=== PATIENT | female | born 1990 | race African-American/Black ===

== ENCOUNTER 2023-11-23 10:12 | Emergency (ER) | payer MEDICAID ==
[~2023-11-23] VITALS: Ht 170.2 cm; Wt 57.0 kg
[2023-11-23 10:21] VITALS: O2SAT 99
[2023-11-23] MEDS ORDERED: POLY17PO3 MT (11:54)
[2023-11-23] MEDS ORDERED: DOCU100T MT (11:54)
[2023-11-23 12:34] VITALS: BP 112/66; PULSE 66; RESP 20; TEMP 98.1
== END 2023-11-23 12:41 | disposition home or self-care (01) ==
LOC: ER 10:41
DX: K59.00 Constipation, unspecified (principal); Z98.890 Other specified postprocedural states
CPT/HCPCS: 74018; 81025; 99283

== ENCOUNTER 2024-01-07 09:41 | Emergency (ER) | payer MEDICAID ==
[~2024-01-07] VITALS: Ht 170.2 cm; Wt 56.7 kg
[~2024-01-07 09:41] MED LIST: DOCU100T MT; POLY17PO3 MT
[2024-01-07 09:53] VITALS: BP 108/71; PULSE 62; RESP 16; TEMP 98.4; O2SAT 100
[2024-01-07] MEDS ORDERED: P50 MT (10:40)
== END 2024-01-07 10:58 | disposition home or self-care (01) ==
LOC: ER 09:50
DX: R21 Rash and other nonspecific skin eruption (principal); J45.909 Unspecified asthma, uncomplicated; Z88.0 Allergy status to penicillin; Z98.890 Other specified postprocedural states
CPT/HCPCS: 99283

== ENCOUNTER 2024-03-18 16:03 | Emergency (ER) | payer MEDICAID ==
[~2024-03-18] VITALS: Ht 170.2 cm; Wt 55.0 kg
[~2024-03-18 16:03] MED LIST changes: +P50 MT
[2024-03-18 16:14] VITALS: O2SAT 100
[2024-03-18 17:50] LABS: CLARITY URINE CLEAR (CLEAR); COLOR URINE YELLOW (YELLOW); GLUCOSE URINE NEGATIVE (NEGATIVE); KETONES URINE NEGATIVE (NEGATIVE); LEUKOCYTE ESTERASE URINE 2+ (NEGATIVE); NITRITE URINE POSITIVE (NEGATIVE); OCCULT BLOOD URINE TRACE (NEGATIVE); PROTEIN URINE NEGATIVE (NEGATIVE); SPECIFIC GRAVITY URINE 1.015 (1.005-1.030); UROBILINOGEN URINE 0.2 E.U./dL (0.2-1.0)
[2024-03-18] MEDS ORDERED: NITR-87 MT (17:56)
[2024-03-18 18:11] LABS: BACTERIA URINE 2+; RBC URINE 0-2 /hpf (0-2); SQUAMOUS EPITHELIAL CELL URINE 1+ /lpf (RARE/1+); WBC URINE TNTC /hpf (0-2)
[2024-03-18 18:55] VITALS: BP 126/70; PULSE 80; RESP 18; TEMP 98.2
== END 2024-03-18 18:55 | disposition home or self-care (01) ==
LOC: ER 16:03
DX: R10.30 Lower abdominal pain, unspecified (principal); R39.15 Urgency of urination; J45.909 Unspecified asthma, uncomplicated; Z98.890 Other specified postprocedural states
CPT/HCPCS: 81003; 81025; 87077; 87186; 99283